=== PATIENT | female | born 1975 | race American Indian/Alaskan Native ===

== ENCOUNTER 2018-03-18 10:19 | Emergency (ER) | payer OTHER ==
[2018-03-18 10:37] VITALS: BP 137/91; PULSE 76; RESP 16; TEMP 99.3; O2SAT 98
--- NOTE | 2018-03-18 10:45 | C.PDOC ---
History Of Present Illness 42 year old female with PMHx of HTN presents to the ED requesting blood pressure medication refill. Reports she ran out. Denies any medical complaints. Time Seen by Provider: 03/18/18 10:31 Chief Complaint (Nursing): Med Refill History Per: Patient History/Exam Limitations: no limitations Past Medical History Reviewed: Historical Data, Nursing Documentation, Vital Signs Vital Signs: Last Vital Signs Temp 99.3 F 03/18/18 10:32 Pulse 76 03/18/18 10:32 Resp 16 03/18/18 10:32 BP 137/91 H 03/18/18 10:32 Pulse Ox 98 03/18/18 10:32 - Medical History PMH: HTN Other Surgeries: Herniorrhaphy Family History: States: No Known Family Hx - Social History Hx Alcohol Use: No Hx Substance Use: No - Immunization History Hx Tetanus Toxoid Vaccination: No Hx Influenza Vaccination: No Hx Pneumococcal Vaccination: No Review Of Systems Except As Marked, All Systems Reviewed And Found Negative. Constitutional: Negative for: Fever, Chills Cardiovascular: Negative for: Chest Pain Respiratory: Negative for: Shortness of Breath Gastrointestinal: Negative for: Nausea, Vomiting, Abdominal Pain, Diarrhea Physical Exam - Physical Exam Appears: Non-toxic, No Acute Distress Skin: Warm, Dry, No Rash Head: Normacephalic Eye(s): bilateral: Normal Inspection Nose: Normal Oral Mucosa: Moist Neck: Supple Chest: Symmetrical Cardiovascular: Rhythm Regular Respiratory: Normal Breath Sounds, No Rales, No Rhonchi, No Wheezing Neurological/Psych: Oriented x3, Normal Speech Gait: Steady ED Course And Treatment O2 Sat by Pulse Oximetry: 98 (RA) Pulse Ox Interpretation: Normal Medical Decision Making Medical Decision Making: Patient given Rx for blood pressure medication. Instructed to follow up with primary medical doctor. Advised to take medications as prescribed. Disposition - Disposition Referrals: [facility] [Outside] [facility] [Outside] Disposition: HOME/ ROUTINE Disposition Time: 10:00 Condition: STABLE Prescriptions: RX: Albuterol Sulfate [Proair Respiclick] 1 puff IH Q4 PRN #1 [email or web address] PRN Reason: Wheezing RX: amLODIPine [Norvasc] 5 mg PO DAILY #20 tab RX: Losartan [Cozaar] 25 mg PO DAILY #20 tab Instructions: High Blood Pressure (DC) Forms: MCE-5 Development (Czech) - Clinical Impression Clinical Impression: Medication refill - Scribe Statement The provider has reviewed the documentation as recorded by the Scribe Breann Ventura All medical record entries made by the Scribe were at my direction and personally dictated by me. I have reviewed the chart and agree that the record accurately reflects my personal performance of the history, physical exam, medical decision making, and the department course for this patient. I have also personally directed, reviewed, and agree with the discharge instructions and disposition.
== END 2018-03-18 10:49 | disposition home or self-care (01) ==
LOC: C.ER 10:19
DX: Z76.0 Encounter for issue of repeat prescription (principal); I10 Essential (primary) hypertension